=== PATIENT | female | born 2000 | race Caucasian/White ===

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

== ENCOUNTER 2021-01-12 14:28 | Emergency (ER) | payer MEDICAID ==
[~2021-01-12] VITALS: Ht 157.5 cm; Wt 49.1 kg
[2021-01-12 15:20] LABS: BASOPHILS % (AUTO) 0.1 % (0-1); EOSINOPHILS % (AUTO) 0.5 % (0-6); HEMATOCRIT 39.7 % (35.0-45.0); HEMOGLOBIN 13.3 g/dl (12.0-16.0); LYMPHOCYTES # (AUTO) 1.7 X10'3 (1.1-4.8); LYMPHOCYTES % (AUTO) 20.9 % (21-51); MEAN CORPUSCULAR HEMOGLOBIN 29.9 PG (27.0-31.0); MEAN CORPUSCULAR HGB CONC 33.5 g/dL (33.0-36.5); MEAN CORPUSCULAR VOLUME 89.3 FL (78-98); MEAN PLATELET VOLUME 8.3 FL (7.4-10.4); MONOCYTES # (AUTO) 0.4 X10'3 (0-0.9); MONOCYTES % (AUTO) 5.3 % (2-12); NEUTROPHILS % (AUTO) 73.2 % (42-75); PLATELET COUNT 280 X10'3 (140-440); RED BLOOD COUNT 4.44 X10'6 (4.20-5.60); RED CELL DISTRIBUTION WIDTH 13.9 % (11.5-14.5); WHITE BLOOD COUNT 8.2 X10'3 (4.5-11.0)
[2021-01-12 15:35] LABS: ALANINE AMINOTRANSFERASE 17 U/L (12-78); ALBUMIN 4.6 G/DL (3.4-5.0); ALBUMIN/GLOBULIN RATIO 1.5 (1.1-1.5); ALKALINE PHOSPHATASE 107 IU/L (20-180); AMYLASE 47 U/L (25-115); ANION GAP 9 (8-16); ASPARTATE AMINO TRANSFERASE 14 U/L (10-37); BILIRUBIN,TOTAL 0.6 MG/DL (0.1-1.0); BLOOD UREA NITROGEN 13 MG/DL (7-18); BUN/CREATININE RATIO 20.6 (6.6-38.0); CALCIUM 9.5 MG/DL (8.5-10.1); CHLORIDE 104 MMOL/L (99-107); CREATININE 0.63 MG/DL (0.40-0.90); GLUCOSE 96 MG/DL (70-104); LIPASE 87 U/L (73-393); POTASSIUM 4.1 MMOL/L (3.5-5.1); SODIUM 138 MMOL/L (135-145); TOTAL CARBON DIOXIDE 24.6 MMOL/L (24-32); TOTAL PROTEIN 7.7 G/DL (6.4-8.2); eGFR > 90 ML/MIN
[2021-01-12 16:35] LABS: URINE HCG NEGATIVE (NEG)
[2021-01-12 16:39] LABS: CLARITY,URINE CLOUDY (Clear); COLOR,URINE YELLOW (Yellow); GLUCOSE, URINE NEGATIVE (Neg); KETONES,URINE 15 mg/dl (Neg); LEUKOCYTE ESTERASE ,URINE NEGATIVE (Neg); NITRITES, URINE NEGATIVE (Neg); OCCULT BLOOD,URINE NEGATIVE (Neg); PH,URINE 6.5 (4.8-8.0); PROTEIN,URINE NEGATIVE (Neg)
[2021-01-12 16:40] LABS: UA COLLECTION TYPE CLN CATCH MIDSTREAM
[2021-01-12 16:50] LABS: SQUAMOUS EPITHELIAL CELL,UR FEW /LPF (FEW)
[2021-01-12 16:51] LABS: AMORPHOUS PHOSPHATES 3+; BACTERIA,URINE 1+ /HPF (Neg); RBC,URINE 0-2 /HPF (0-2)
--- NOTE | 2021-01-12 17:03 | NUR ---
PT WORRIED ABOUT HAVING RETAINED TAMPON, DR VALENTE IN TO DO PELVIC WITH [employer]SE[employer]ICER. NO TAMPON SEEN, PT TOLERATED WELL.
[2021-01-12] MEDS ORDERED: ibuprofen tablet 400 MG TABLET PO ONE (17:40)
[2021-01-12 18:12] VITALS: BP 126/88
== END 2021-01-12 18:14 | disposition home or self-care (01) ==
LOC: ER 14:28
DX: R10.2 Pelvic and perineal pain (principal); R10.30 Lower abdominal pain, unspecified; K59.00 Constipation, unspecified; F41.9 Anxiety disorder, unspecified; F32.9 Major depressive disorder, single episode, unspecified; Z88.0 Allergy status to penicillin; Z79.899 Other long term (current) drug therapy
CPT/HCPCS: 36415; 76856; 80053; 81001; 81025; 82150; 83690; 85025; 87088; 93976; 99284

== ENCOUNTER 2022-08-04 18:01 | Emergency (ER) | payer MEDICAID ==
[~2022-08-04] VITALS: Ht 157.5 cm; Wt 46.0 kg
[2022-08-04 18:03] VITALS: BP 152/92
[2022-08-04] MEDS ORDERED: dexamethasone sod phosphate 10mg/ml inj PO STA (20:56)
[2022-08-04] MEDS ORDERED: ONDA4TAB12 PO (20:58)
[2022-08-04] MEDS ORDERED: TAM75C PO (20:58)
[2022-08-04] MEDS ORDERED: ketorolac trometh. 30mg/ml inj. IM ONE (21:00)
[2022-08-04] MEDS ORDERED: oseltamivir phos 75mg capsule PO ONE (21:00)
[2022-08-04] MEDS ORDERED: ondansetron 4mg rapidly disintigrating tab PO ONE (21:00)
== END 2022-08-04 21:20 | disposition home or self-care (01) ==
LOC: ER 18:02
DX: J10.1 Influenza due to other identified influenza virus with other respiratory manifestations (principal); F31.9 Bipolar disorder, unspecified; Z88.0 Allergy status to penicillin; Z79.899 Other long term (current) drug therapy; Z88.2 Allergy status to sulfonamides; Z88.8 Allergy status to other drugs, medicaments and biological substances
CPT/HCPCS: 96372; 99284; J1100; J1885

== ENCOUNTER 2022-09-27 03:37 | Emergency (ER) | payer MEDICAID ==
[~2022-09-27] VITALS: Ht 157.5 cm; Wt 46.4 kg
[~2022-09-27 03:37] MED LIST changes: +ONDA4TAB12 PO
[2022-09-27] MEDS ORDERED: LORazepam 2 mg/ml vial IV ONE (04:00)
[2022-09-27] MEDS ORDERED: morphine 2 MG/ML inj. syringe IV PRN (04:00)
[2022-09-27] MEDS ORDERED: ketorolac tromethamine 15mg/ml inj. IV ONE (04:00)
[2022-09-27] MEDS ORDERED: normal saline 1000ML IV soln IVB ONE (04:00)
[2022-09-27] MEDS ORDERED: iohexol 300mg/ml 100ml inj. ONE (04:07)
[2022-09-27 04:39] LABS: BASOPHILS # (AUTO) 0.1 X10'3 (0-0.2); BASOPHILS % (AUTO) 0.8 % (0-1); EOSINOPHILS # (AUTO) 0.1 X10'3 (0-0.9); EOSINOPHILS % (AUTO) 0.8 % (0-6); HEMATOCRIT 32.2 % (35.0-45.0); HEMOGLOBIN 10.6 g/dl (12.0-16.0); LYMPHOCYTES # (AUTO) 1.4 X10'3 (1.1-4.8); LYMPHOCYTES % (AUTO) 14.4 % (21-51); MEAN CORPUSCULAR HEMOGLOBIN 29.8 PG (27.0-31.0); MEAN CORPUSCULAR VOLUME 90.3 FL (78-98); MEAN PLATELET VOLUME 8.5 FL (7.4-10.4); MONOCYTES # (AUTO) 0.4 X10'3 (0-0.9); MONOCYTES % (AUTO) 4.5 % (2-12); NEUTROPHILS # (AUTO) 7.7 X10'3 (1.8-7.7); NEUTROPHILS % (AUTO) 79.5 % (42-75); PLATELET COUNT 196 X10'3 (140-440); RED BLOOD COUNT 3.56 X10'6 (4.20-5.60); RED CELL DISTRIBUTION WIDTH 14.4 % (11.5-14.5); WHITE BLOOD COUNT 9.6 X10'3 (4.5-11.0)
[2022-09-27 04:58] LABS: ALANINE AMINOTRANSFERASE 10 U/L (12-78); ALBUMIN 3.4 G/DL (3.4-5.0); ALBUMIN/GLOBULIN RATIO 1.3 (1.1-1.5); ALKALINE PHOSPHATASE 83 IU/L (46-116); ANION GAP 10 (8-16); ASPARTATE AMINO TRANSFERASE 10 U/L (10-37); BILIRUBIN,TOTAL 0.3 MG/DL (0.1-1.0); BLOOD UREA NITROGEN 15 MG/DL (7-18); BUN/CREATININE RATIO 23.1 (6.6-38.0); CALCIUM 8.1 MG/DL (8.5-10.1); CHLORIDE 109 MMOL/L (99-107); CREATININE 0.65 MG/DL (0.40-0.90); ETHANOL < 0.010 GM/DL (0.0-0.010); GLUCOSE 103 MG/DL (70-104); POTASSIUM 3.7 MMOL/L (3.5-5.1); SODIUM 142 MMOL/L (135-145); TOTAL CARBON DIOXIDE 23.1 MMOL/L (24-32); eGFR > 90 ML/MIN
--- NOTE | 2022-09-27 05:30 | NUR ---
Dr. Carver notified of BP 85/49, new order for NS 1000 ml bolus ordered and initiated.
[2022-09-27] MEDS ORDERED: normal saline 1000ml 1,000 ML IV ONE (05:35)
--- NOTE | 2022-09-27 06:06 | NUR ---
Dr. Carver informed of BP 71/36, no new orders. Pt. sleeping quietly without distress noted. NS bolus continues to infuse
[2022-09-27 07:12] VITALS: BP 100/58
--- NOTE | 2022-09-27 07:13 | NUR ---
Provider aware of patient blood pressure prior to discharge. Okay to discharge per Dr. Carver.
[2022-09-27 07:50] LABS: URINE AMPHETAMINE SCREEN NEGATIVE (Neg); URINE BARBITUATE SCREEN NEGATIVE (Neg); URINE BENZODIAZEPINES SCREEN POSITIVE (Neg); URINE CANNABINOID SCREEN POSITIVE (Neg); URINE COCAINE SCREEN NEGATIVE (Neg); URINE METHADONE SCREEN NEGATIVE (Neg); URINE OPIATE SCREEN POSITIVE (Neg); URINE PHENCYCLIDINE SCREEN NEGATIVE (Neg)
== END 2022-09-27 07:14 | disposition home or self-care (01) ==
LOC: ER 03:38
DX: F41.9 Anxiety disorder, unspecified (principal); G89.18 Other acute postprocedural pain; R10.11 Right upper quadrant pain; Z88.0 Allergy status to penicillin; Z88.2 Allergy status to sulfonamides
CPT/HCPCS: 36415; 74177; 80053; 80305; 80320; 83735; 85025; 96361; 96374; 96375; 99285; J1885; J2060; J2270; J3490; J7030; Q9967

== ENCOUNTER 2023-08-02 23:42 | Emergency (ER) | payer MEDICAID ==
[~2023-08-02] VITALS: Ht 157.5 cm; Wt 45.5 kg
[2023-08-03 00:06] VITALS: BP 108/65; PULSE 115; RESP 18; TEMP 98.3; O2SAT 98
== END 2023-08-03 05:28 | disposition left against medical advice (07) ==
LOC: ER 23:42
DX: S60.512A Abrasion of left hand, initial encounter (principal); S60.511A Abrasion of right hand, initial encounter; Z53.21 Procedure and treatment not carried out due to patient leaving prior to being seen by health care provider; W55.01XA Bitten by cat, initial encounter; Y93.89 Activity, other specified; Y92.89 Other specified places as the place of occurrence of the external cause; Y99.8 Other external cause status
CPT/HCPCS: 99281